=== PATIENT | male | born 1960 | race Caucasian/White ===

== ENCOUNTER → 2018-08-23 | Outpatient (CLI) | payer OTHER ==
[~2018-08-23] MED LIST: LISI-613 PO; OMEG1CAP43 PO
== END | disposition home or self-care (01) ==
LOC: OIH 13:46
PROVIDERS: ATTEND Internal Medicine Cardiovascular Disease
DX: Z13.6 Encounter for screening for cardiovascular disorders (principal)
CPT/HCPCS: 75571